=== PATIENT | female | born 1970 | race Two or more races ===

== ENCOUNTER 2018-02-11 11:59 | Day surgery (SDC) | payer BC ==
[~2018-02-11 11:59] MED LIST: Buffered Lidocaine 0.9% SYRIN* 5 ML/SYR SYRINGE INTRADERM ONE; Sodium Citrate/Citric Acid* 15 ML UDC PO ONE
[2018-02-11] MEDS ORDERED: Morphine PCA ADULT* 5 MG/ML 30 ML ONE (12:20)
[2018-02-11] MEDS ORDERED: ceFAZolin 2 GM PREMIX in ORs 2 GM/50 ML BAG IVPB ONE (12:31)
[2018-02-11] MEDS ORDERED: Sodium Citrate/Citric Acid* 15 ML UDC ONE ×2 (12:31)
[2018-02-11] MEDS ORDERED: Midazolam* 1 MG/ML 2 ML VIAL (2 MG) ONE ×2 (17:48→18:25)
[2018-02-11] MEDS ORDERED: Mepivacaine 1% (10 MG/ML)* 30 ML SDV ONE (17:50)
[2018-02-11] MEDS ORDERED: Mepivacaine 2% MPF (20 MG/ML)* 20 ML MPF ONE (17:51)
[2018-02-11] MEDS ORDERED: Propofol* 10 MG/ML 20 ML BTL IV PUSH ONE (18:40)
[2018-02-11] MEDS ORDERED: Naloxone* 0.4 MG/ML 1 ML VIAL IV PRN (19:07)
[2018-02-11 21:23] VITALS: BP 150/88
--- NOTE | 2018-02-12 17:24 | OP ---
OPERATIVE REPORT: DATE OF OPERATION: 02/11/18 DATE OF : 68 SURGEON: Chano Esquivel MD GAME [employer]ARM SUPERVISOR: PRAVEENA Neal. An sales assistant was needed for the procedure to aid in positioning of the arm and retraction. ANESTHESIOLOGIST: Dr. Reyna. ANESTHESIA: Peripheral nerve block with MAC. PRE-OP DIAGNOSES: 1. Right wrist ulnar impaction syndrome. 2. Central degenerative TFCC perforation, right wrist. POST-OP DIAGNOSES: 1. Right wrist ulnar impaction syndrome. 2. Central degenerative TFCC perforation, right wrist. OPERATIVE PROCEDURES: 1. Debridement of right central TFCC perforation. 2. Removal of loose body, right wrist. 3. Right ulnar shortening osteotomy. INDICATIONS: Avni is 47. The pain has been present for many months now. The wrist is very achy at the end of the day. It is always on the ulnar side. She has problems with lifting and twisting act ivities. We had talked about risks and benefits, she had wanted to proceed with surgery. ESTIMATED BLOOD LOSS: 2 mL. COMPLICATIONS: None. FINDINGS: See above and below. DESCRIPTION OF PROCEDURE: Avni was seen in the preoperative holding area. The correct site, side, and procedure were identified. We came back to the operating room where the arm was prepped and drap ed in the usual fashion and a time-out was performed. The arm was positioned in the Acumed traction tower and inline traction was applied. The arm was exs anguinated with the Esmarch and the tourniquet inflated to 250 mmHg. A 3, 4 portal was developed in the standard fashion with an 11 blade followed by the mosquito followe d by the blunt trocar. The camera was introduced. The radial sided structures all looked good. Uln christina, there was extensive degeneration and a large central degenerative perforation. The ulnar head was visualized right underneath the central perforation. There was a loose body noted on the ulnar s ron of the wrist. I brought in the shaver and I debrided back. I performed a partial dorsal synovec jimy and repeated partially the TFCC perforation. I then introduced a grasper and I removed arthrosc opically the loose body. After the loose body was excised, I brought in the biter and the shaver and debrided back the edges o f the central TFCC perforation to stable edges. The cartilage surfaces looked good. The arthroscopic equipment was all handed off and the elbow was flexed and a longitudinal incision wa s made over the distal shaft at the ulnar. Dissection was carried down and flaps were raised off the fascia. The interval between the FCU and the ECU tendons was utilized to raise the periosteal flaps to expose the ulnar bone. The plate was placed dorsally and clamped into place. One screw was plac ed in the distal aspect of the oblong hole and then 3 screws were placed proximally. The lag screw cu tting guide was introduced and pinned into place. I then selected a 4-mm cutting block, based off my preoperative templating this was pinned and clamped into place and then the first osteotomy was made . I then brought in cutting block B and it was secured and then the second osteotomy was made. I th en placed my compression clamp and I pinned that into place just palmar to the midline of the ulnar. The osteotomy was then closed down with the compression clamp, it was perfectly aligned. The lag sc rew was drilled, tapped, and placed. I then placed 2 more distal screws to finish up the fixation. At this point, the osteotomy was completely compressed. Everything was looking very good. The fluor oscopic imaging of the osteotomy site as well as the wrist and elbow were obtained. The wound was ir rigated out. The fascia was closed with 3-0 Vicryl suture. The skin was closed with 4-0 Monocryl mendoza ture. The arthroscopic portal were closed with Steri-Strips. Steri-Strips were placed over the ulna r wound as well. No local anesthetic was infiltrated as the patient had a peripheral nerve block. T he wounds were dressed and a sugar-tong splint was applied. Tourniquet was deflated and the hand pink ed up immediately. She was then taken to the recovery room in stable condition. [id number]/[facility] #: [id number]
== END 2018-02-11 21:31 | disposition home or self-care (01) ==
LOC: OR 11:59
PROVIDERS: ATTEND Orthopaedic Surgery Hand Surgery
DX: M24.131 Other articular cartilage disorders, right wrist (principal); M24.831 Other specific joint derangements of right wrist, not elsewhere classified; J45.990 Exercise induced bronchospasm; G89.18 Other acute postprocedural pain
CPT/HCPCS: 76000; 81025; 88304; A9270-GY; C1713; C1776; J0670; J0690; J2250; J2270; J2704

== ENCOUNTER 2018-05-20 20:06 | Emergency (ER) | payer BC ==
[2018-05-20 20:46] VITALS: BP 160/122
[2018-05-20] MEDS ORDERED: Ondansetron INJ* 2 MG/ML VIAL IV ONE (20:54)
[2018-05-20] MEDS ORDERED: NS 0.9% 1000 ML** 1,000 ML IV ONE (20:54)
--- NOTE | 2018-05-20 20:59 | UC ---
Nausea/Vomiting/Diarrhea HPI - HPI Summary HPI Summary: 47-year-old woman 47-year-old woman comes in with a chief complaint of nausea and vomiting. Started 3 days ago. Anytime she tries eat anything she throws up. Denies any abdominal pain. She did have a small bowel movement today that was slightly looser than normal but was not diarrhea. She is still urinating. Does feel lightheaded when she stands up. - History of Current Complaint Chief Complaint: UCGI Stated Complaint: VOMTING Time Seen by Provider: 05/20/18 20:40 Hx Last Menstrual Period: 05/14/2018 Pain Intensity: 0 - Allergies/Home Medications Allergies/Adverse Reactions: Allergies Allergy/AdvReac Type Severity Reaction Status Date / Time alcohol Allergy Severe Rash Verified 05/20/18 20:39 codeine AdvReac Severe Dizzy Verified 05/20/18 20:39 Home Medications: Home Medications Orphenadrine Citrate [Orphenadrine Citrate ER] 100 mg PO BID 05/20/18 [History Confirmed 05/20/18] PMH/Surg Hx/FS Hx/Imm Hx Previously Healthy: Yes Respiratory History: Asthma - Surgical History Surgical History: Yes Surgery Procedure, Year, and Place: , 2005. R arm surgery February 11, 2018 - Social History Alcohol Use: None Substance Use Type: None Smoking Status (MU): Never Smoked Tobacco Review of Systems All Other Systems Reviewed And Are Negative: Yes Constitutional: Positive: Negative Skin: Positive: Negative Eyes: Positive: Negative ENT: Positive: Negative Respiratory: Positive: Negative Cardiovascular: Positive: Negative Gastrointestinal: Positive: Vomiting, Nausea Genitourinary: Positive: Negative Motor: Positive: Negative Neurovascular: Positive: Negative Musculoskeletal: Positive: Negative Neurological: Positive: Negative Psychological: Positive: Negative Is Patient Immunocompromised?: No Physical Exam Triage Information Reviewed: Yes Appearance: No Pain Distress, Well-Nourished, Ill-Appearing - MILD Vital Signs: Initial Vital Signs Temp 98.4 F 05/20/18 20:41 Pulse 91 05/20/18 20:41 Resp 18 05/20/18 20:41 BP 160/122 05/20/18 20:41 Pulse Ox 98 05/20/18 20:41 Vital Signs Reviewed: Yes Eye Exam: Normal Eyes: Positive: Conjunctiva Clear ENT: Positive: Pharynx normal, TMs normal Neck exam: Normal Neck: Positive: Supple Respiratory: Positive: Lungs clear, Normal breath sounds, No respiratory distress Cardiovascular: Positive: RRR Abdomen Description: Positive: Nontender, Soft Bowel Sounds: Positive: Present Musculoskeletal Exam: Normal Musculoskeletal: Positive: Strength Intact, ROM Intact Neurological Exam: Normal Neurological: Positive: Alert, Muscle Tone Normal Psychological Exam: Normal Psychological: Positive: Age Appropriate Behavior Skin Exam: Normal Naus/Vom/Diarrhea Course/Dx - Differential Dx/Diagnosis Provider Diagnosis: Dehydration, Nausea & vomiting Discharge - Sign-Out/Discharge Documenting (check all that apply): Patient Departure All imaging exams completed and their final reports reviewed: No Studies - Discharge Plan Condition: Stable Disposition: HOME Patient Education Materials: Dehydration (ED), Acute Nausea and Vomiting (ED) Referrals: Thien Morales MD [Primary Care Provider] - Additional Instructions: FOLLOW UP WITH YOUR DOCTOR IF NOT COMPLETELY IMPROVED. GET RECHECKED FOR ANY WORSENING OF YOUR CONDITION OR QUESTIONS OR CONCERNS. - Billing Disposition and Condition Condition: STABLE Disposition: Home
[2018-05-20 21:06] LABS: Influenza A Molecular NEGATIVE (Negative); Influenza B Molecular NEGATIVE (Negative)
[2018-05-20] MEDS ORDERED: Ondansetron ODT TAB* 4 MG PO ONE (21:43)
== END 2018-05-20 22:15 | disposition home or self-care (01) ==
LOC: UCEAST 20:06
DX: R11.2 Nausea with vomiting, unspecified (principal); E86.0 Dehydration; J45.909 Unspecified asthma, uncomplicated; R42 Dizziness and giddiness
CPT/HCPCS: 96360; 96374; 99202; A9270-GY; G0463; J2405

== ENCOUNTER 2019-02-15 14:51 | Emergency (ER) | payer BC ==
[2019-02-15 15:13] VITALS: BP 145/91
--- NOTE | 2019-02-15 15:33 | UC ---
Eye Complaint HPI - HPI Summary HPI Summary: AFTER GETTING OUT OF THE SHOWER THIS MORNING FELT LIKE THERE WAS SOMETHING STUCK IN HER LEFT EYE. USED OTC EYEDROPS WITH NO IMPROVEMENT. NO PHOTOPHOBIA, NAUSEA, HEADACHE. DOES NOT WEAR CONTACT LENSES. - History of Current Complaint Chief Complaint: UCEye Stated Complaint: LT EYE COMPLAINTS Time Seen by Provider: 02/15/19 15:17 Hx Obtained From: Patient Hx Last Menstrual Period: now Onset/Duration: Sudden Onset, Lasting Hours, Still Present Timing: Constant Severity Initially: Moderate Severity Currently: Moderate Pain Intensity: 2 Pain Scale Used: 0-10 Numeric Character: Foreign Body Sensation Aggravating Factor(s): Blinking Alleviating Factor(s): Nothing Associated Signs And Symptoms: Negative: Photophobia, Drainage (Clear), Vision Impairment Bilateral - Allergies/Home Medications Allergies/Adverse Reactions: Allergies Allergy/AdvReac Type Severity Reaction Status Date / Time codeine AdvReac Severe Dizzy Verified 02/15/19 15:14 ETOH Allergy Rash Uncoded 02/15/19 15:14 Home Medications: Home Medications Cholecalciferol TAB* [Vitamin D TAB*] 02/15/19 [History Confirmed 02/15/19] PMH/Surg Hx/FS Hx/Imm Hx Respiratory History: Asthma - Surgical History Surgical History: Yes Surgery Procedure, Year, and Place: , 2005. R arm surgery February 11, 2018 - Social History Alcohol Use: None Substance Use Type: None Smoking Status (MU): Never Smoked Tobacco Review of Systems All Other Systems Reviewed And Are Negative: Yes Constitutional: Positive: Negative Eyes: Positive: Other - LEFT EYE FB SENSATION Respiratory: Positive: Negative Cardiovascular: Positive: Negative Gastrointestinal: Positive: Negative Physical Exam Triage Information Reviewed: Yes Appearance: Well-Appearing, No Pain Distress, Well-Nourished Vital Signs: Initial Vital Signs Temp 97.6 F 02/15/19 15:09 Pulse 68 02/15/19 15:09 Resp 16 02/15/19 15:09 BP 145/91 02/15/19 15:09 Pulse Ox 97 02/15/19 15:09 Vital Signs Reviewed: Yes Eyes: Positive: Conjunctiva Clear, Other: - PERRL, EOMI. NO CORNEAL ABRASION. FLUORESCEIN UPTAKE IN STREAKY PATTERN ACROSS LOWER BULBAR CONJUNCTIVA LEFT EYE ENT: Positive: Hearing grossly normal Neck: Positive: Supple Respiratory: Positive: No respiratory distress, No accessory muscle use Cardiovascular: Positive: Pulses Normal Abdomen Description: Positive: Soft Musculoskeletal: Positive: No Edema Neurological: Positive: Alert Psychological: Positive: Age Appropriate Behavior Skin: Negative: Rashes Eye Complaint Course/Dx - Course Course Of Treatment: NO CLEAR FOREIGN BODY. NO CORNEAL ABRASION. NO CHANGE IN FB SENSATION AFTER IRRIGATION WITH EYE STREAM. WILL COVER FOR CONJUNCTIVAL ABRASION WITH ERYTHROMYCIN OINTMENT 4 TIMES DAILY. ADVISED PATIENT TO FOLLOW-UP WITH AN EYE DOCTOR IF HER PAIN CONTINUES TO WORSEN OR DOES NOT IMPROVE OVER THE NEXT COUPLE OF DAYS. - Differential Dx/Diagnosis Provider Diagnosis: Abrasion of conjunctiva, left Discharge ED - Sign-Out/Discharge Documenting (check all that apply): Patient Departure All imaging exams completed and their final reports reviewed: No Studies - Discharge Plan Condition: Stable Disposition: HOME Prescriptions: Erythromycin OPHTH.OINT* [Ilotycin OPHTH.OINT*] 1 applic LEFT EYE QID #1 tube Patient Education Materials: Eye Pain (ED) Referrals: De Parra MD [Medical Doctor] - If Needed Thien Morales MD [Primary Care Provider] - If Needed Additional Instructions: NO FOREIGN BODY IDENTIFIED. NO CORNEAL ABRASION. WILL COVER FOR CONJUNCTIVAL ABRASION WITH ANTIBIOTIC OINTMENT. FOLLOW-UP WITH AN EYE DOCTOR IF YOUR SYMPTOMS ARE NOT IMPROVING OVER THE NEXT FEW DAYS. CONJUNCTIVAL ABRASION Conjunctival abrasions occur from blunt injuries and mild chemical or thermal manning and present as an irregularity of the epithelial surface of the conjunctiva, best seen using fluorescein stain and a cobalt blue light. Regions of denuded epithelium will appear green. Corneal abrasions are also frequently present. Isolated conjunctival abrasions are treated with antibiotic ointment applied four times daily for one week. Referral to an tech brazer tester for a complete eye examination within one to three days of injury is a reasonable precaution in these patients if all symptoms have not resolved and in contact wearers. These injuries typically heal within two to three days. Patients with an isolated conjunctival injury typically recover fully without any vision loss Don't drive or operate machinery until you have the use of both your eyes. The abrasion usually is healed in one or two days. A follow-up examination to confirm healing is recommended. Call the doctor or return at once if you develop severe pain, decreasing vision, eye swelling, or purulent drainage. - Billing Disposition and Condition Condition: STABLE Disposition: Home
[2019-02-15] MEDS ORDERED: Fluorescein Sodium TOPICAL* 1 MG TEST STRIP OPHTHALMIC ONE (15:35)
[2019-02-15] MEDS ORDERED: Tetracaine 0.5% OPTH.SOL 4 ML* 1 DROP BTL LEFT EYE ONE (15:36)
[2019-02-15] MEDS ORDERED: Eye Irrigation Solution 30 ML BOTTLE LEFT EYE ONE (15:46)
== END 2019-02-15 16:14 | disposition home or self-care (01) ==
LOC: UCEAST 14:51
DX: S05.02XA Injury of conjunctiva and corneal abrasion without foreign body, left eye, initial encounter (principal); J45.909 Unspecified asthma, uncomplicated; Z88.5 Allergy status to narcotic agent; Z91.09 Other allergy status, other than to drugs and biological substances; X58.XXXA Exposure to other specified factors, initial encounter; Y92.9 Unspecified place or not applicable
CPT/HCPCS: 99213; A9270-GY; G0463